=== PATIENT | female | born 1990 | race Caucasian/White ===

== ENCOUNTER 2017-11-18 16:58 | Emergency (ER) | payer OTHER ==
[2017-11-18 18:12] LABS: Urine Appearance Cloudy; Urine Blood Negative (Negative); Urine Color Straw; Urine Ketones Negative (Negative); Urine Protein Negative (Negative); Urine Specific Gravity 1.004 (1.010-1.030); Urine Urobilinogen Negative (Negative)
[2017-11-18 18:13] LABS: ABS Basophils 0.1 10^3/ul (0-0.2); ABS Eosinophils 0.1 10^3/ul (0-0.6); ABS Lymphocytes 2.2 10^3/ul (1.0-4.8); ABS Monocytes 0.8 10^3/ul (0-0.8); ABS Neutrophils 6.1 10^3/ul (1.5-7.7); ABS Nucleated RBC 0 10^3/ul; Eosinophil % 1.3 % (0-6); Hematocrit 42 % (35-47); Hemoglobin 14.3 g/dl (12.0-16.0); Lymphocyte % 23.6 % (25-47); Mean Corpuscular HGB Conc 34 g/dl (31-36); Mean Corpuscular Hemoglobin 31 pg (27-31); Mean Corpuscular Volume 91 fL (80-97); Mean Platelet Volume 8 um3 (7.4-10.4); Nucleated Red Blood Cells % 0; Platelet Count 239 10^3/ul (150-450); Red Blood Count 4.58 10^6/ul (4.0-5.4); Red Cell Distribution Width 13 % (10.5-15); White Blood Count 9.2 10^3/ul (3.5-10.8)
[2017-11-18 18:32] LABS: EGFR Non-African American 84.8 (>60)
--- NOTE | 2017-11-19 02:16 | ED ---
Jarad Ibarra Thomas, scribed for Shaniqua Apodaca MD on 11/19/17 at 0159 . Progress - Progress Note Progress Note: The patient is a sign out from Dr. Eden to follow up on the Ultrasound Pelvis. Ultrasound Pelvis. Interpreted by radiologist. Impression: Complex cystic structure in the right ovary likely reflects a hemorrhagic cyst. Correlation with history and pelvic exam is recommended. No torsion. The patient will be discharged home to follow up with primary care. Condition is stable. Course/Dx - Diagnoses Provider Diagnoses: Ovarian cyst, right The documentation as recorded by the Jarad sheth Thomas accurately reflects the service I personally performed and the decisions made by Constanza muir Abdul, MD.
[2017-11-19 02:39] VITALS: BP 112/70
--- NOTE | 2017-11-19 07:33 | RAD ---
INDICATION: Bilateral adnexal pain. COMPARISON: There are no prior studies available for comparison. TECHNIQUE: Multiple real-time transvaginal images of the pelvis were obtained. FINDINGS: The uterus is normal in size, shape and echogenicity. The uterus measured 7.2 x 3.3 x 4.3 cm. The endometrial echo measured 0.8 cm in thickness. The right ovary measured 4.2 x 4.0 x 2.6 cm. The left ovary measured 2.4 x 2.1 x 0.9 cm. There is vascular flow within both ovaries. There is a complex cyst present within the right ovary with internal septations and low-level echoes measuring 3.9 x 2.2 x 3.9 cm. There is a small amount of free intraperitoneal fluid seen. IMPRESSION: 1. 3.9 CM COMPLEX RIGHT OVARIAN CYST. RECOMMEND A FOLLOW-UP PELVIC ULTRASOUND IN 1-2 MONTHS TIME. 2. SMALL AMOUNT OF FREE INTRAPERITONEAL FLUID.
--- NOTE | 2017-11-20 10:52 | ED ---
Christiano Ibarra Jennifer, scribed for Jere Eden MD on 11/18/17 at 2031 . Abdominal Pain/Female - HPI Summary HPI Summary: The patient is a 27 year old female who presents to the ED with lower abdominal pain that began three days ago. She believed she pulled a muscle in her lower back from working out three days ago. Two days ago, her lower abdomen began to hurt causing her to hunch over, and the pain spread to her hips and lower back. The pain is described as tightness with sudden onset. She additionally complains of increased frequency of urination. The patient denies nausea and bowel movement issues. Sitting up straight aggravates the pain. Her LNMP was two weeks ago. - History of Current Complaint Chief Complaint: EDAbdPain Stated Complaint: ABD PAIN Time Seen by Provider: 11/18/17 20:15 Hx Obtained From: Patient Hx Last Menstrual Period: 2 weeks ago Onset/Duration: Sudden Onset, Lasting Days - three days, Still Present Timing: Constant Severity Initially: Moderate Severity Currently: Moderate Pain Intensity: 6 Pain Scale Used: 0-10 Numeric Radiates: Yes Radiates to: Back, Other - Hips Character: Other: - Tightness Aggravating Factor(s): Other: - Sitting up straight Alleviating Factor(s): Other: - Lying down Associated Signs and Symptoms: Positive: Other: - increased frequency of urination. NEGATIVE: nausea, problems with bowel movement Allergies/Adverse Reactions: Allergies Allergy/AdvReac Type Severity Reaction Status Date / Time No Known Allergies Allergy Verified 07/25/14 11:50 PMH/Surg Hx/FS Hx/Imm Hx Endocrine/Hematology History: Denies: Hx Diabetes Cardiovascular History: Denies: Hx Hypertension - Surgical History Surgery Procedure, Year, and Place: Knee 2010 Infectious Disease History: No Infectious Disease History: Denies: Traveled Outside the [place] in Last 30 Days - Family History Known Family History: Negative: Hypertension, Diabetes - Social History Alcohol Use: Occasionally Substance Use Type: Reports: None Smoking Status (MU): Never Smoked Tobacco Review of Systems Positive: Abdominal Pain - radiates to back and hips. Negative: Nausea Positive: other - increased frequency of urination All Other Systems Reviewed And Are Negative: Yes Physical Exam - Summary Physical Exam Summary: Appearance: The patient is well-nourished in no acute distress and in no acute pain. Skin: The skin is warm and dry and skin color reflects adequate perfusion. HEENT: ~The head is normocephalic and atraumatic. The pupils are equal and reactive. The conjunctivae are clear and without drainage. ~Nares are patent and without drainage. ~Mouth reveals moist mucous membranes and the throat is without erythema and exudate. ~The external ears are intact. The ear canals are patent and without drainage. The tympanic membranes are intact. Neck: the neck is supple with full range of motion and non-tender. There are no carotid bruits. ~There is no neck vein distension. Respiratory: Chest is non-tender. ~Lungs are clear to auscultation and breath sounds are symmetrical and equal. Cardiovascular: Heart is regular rate and rhythm. ~There is no murmur or rub auscultated. ~~There is no peripheral edema and pulses are symmetrical and equal. Abdomen: The abdomen is soft and non-tender. ~There are normal bowel sounds heard in all four quadrants and there is no organomegaly palpated. Musculoskeletal: There is no back tenderness noted. ~Extremities are non-tender with full range of motion. ~There is good capillary refill. ~There is no peripheral edema or calf tenderness elicited. Neurological: Patient is alert and oriented to person, place and time. ~The patient has symmetrical motor strength in all four extremities. ~Cranial nerves are grossly intact. Deep tendon reflexes are symmetrical and equal in all four extremities. Psychiatric: The patient has an appropriate affect and does not exhibit any anxiety or depression. Triage Information Reviewed: Yes Vital Signs On Initial Exam: Initial Vitals Temp Pulse Resp BP Pulse Ox 98.1 F 65 16 115/76 95 11/18/17 17:01 11/18/17 17:01 11/18/17 17:01 11/18/17 17:01 11/18/17 17:01 Vital Signs Reviewed: Yes Diagnostics - Vital Signs Vital Signs Temp Pulse Resp BP Pulse Ox 11/18/17 19:00 98.6 F 52 113/90 100 11/18/17 17:01 98.1 F 65 16 115/76 95 - Laboratory Lab Results: Lab Results 11/18/17 11/18/17 11/18/17 Range/Units 17:31 17:45 17:45 WBC 9.2 (3.5-10.8) 10^3/ul RBC 4.58 (4.0-5.4) 10^6/ul Hgb 14.3 (12.0-16.0) g/dl Hct 42 (35-47) % MCV 91 (80-97) fL MCH 31 (27-31) pg MCHC 34 (31-36) g/dl RDW 13 (10.5-15) % Plt Count 239 (150-450) 10^3/ul MPV 8 (7.4-10.4) um3 Neut % (Auto) 66.2 (38-83) % Lymph % (Auto) 23.6 L (25-47) % [place] % (Auto) 8.2 (1-9) % Eos % (Auto) 1.3 (0-6) % Baso % (Auto) 0.7 (0-2) % Absolute Neuts (auto) 6.1 (1.5-7.7) 10^3/ul Absolute Lymphs (auto) 2.2 (1.0-4.8) 10^3/ul Absolute Monos (auto) 0.8 (0-0.8) 10^3/ul Absolute Eos (auto) 0.1 (0-0.6) 10^3/ul Absolute Basos (auto) 0.1 (0-0.2) 10^3/ul Absolute Nucleated RBC 0 10^3/ul Nucleated RBC % 0 Sodium 136 (133-145) mmol/L Potassium 3.7 (3.5-5.0) mmol/L Chloride 104 (101-111) mmol/L Carbon Dioxide 26 (22-32) mmol/L Anion Gap 6 (2-11) mmol/L BUN 12 (6-24) mg/dL Creatinine 0.81 (0.51-0.95) mg/dL Est GFR ( Amer) 109.1 (>60) Est GFR (Non-Af Amer) 84.8 (>60) BUN/Creatinine Ratio 14.8 (8-20) Glucose 95 (70-100) mg/dL Lactic Acid (0.5-2.0) mmol/L Calcium 9.4 (8.6-10.3) mg/dL Total Bilirubin 0.30 (0.2-1.0) mg/dL AST 19 (13-39) U/L ALT 13 (7-52) U/L Alkaline Phosphatase 62 (34-104) U/L C-Reactive Protein 2.88 (< 5.00) mg/L Total Protein 7.4 (6.4-8.9) g/dL Albumin 4.1 (3.2-5.2) g/dL Globulin 3.3 (2-4) g/dL Albumin/Globulin Ratio 1.2 (1-3) Lipase 64 (11.0-82.0) U/L Beta HCG, Quant < 0.60 mIU/mL Urine Color Straw Urine Appearance Cloudy Urine pH 6.0 (5-9) Ur Specific [place] 1.004 L (1.010-1.030) Urine Protein Negative (Negative) Urine Ketones Negative (Negative) Urine Blood Negative (Negative) Urine Nitrate Negative (Negative) Urine Bilirubin Negative (Negative) Urine Urobilinogen Negative (Negative) Ur Leukocyte Esterase Trace H (Negative) Urine WBC (Auto) Trace(0-5/hpf) (Absent) Urine RBC (Auto) Trace(0-2/hpf) (Absent) Ur Squamous Epith Cells Present H (Absent) Urine Bacteria 1+ H (Absent) Urine Glucose Negative (Negative) 11/18/17 Range/Units 17:45 WBC (3.5-10.8) 10^3/ul RBC (4.0-5.4) 10^6/ul Hgb (12.0-16.0) g/dl Hct (35-47) % MCV (80-97) fL MCH (27-31) pg MCHC (31-36) g/dl RDW (10.5-15) % Plt Count (150-450) 10^3/ul MPV (7.4-10.4) um3 Neut % (Auto) (38-83) % Lymph % (Auto) (25-47) % Barton % (Auto) (1-9) % Eos % (Auto) (0-6) % Baso % (Auto) (0-2) % Absolute Neuts (auto) (1.5-7.7) 10^3/ul Absolute Lymphs (auto) (1.0-4.8) 10^3/ul Absolute Monos (auto) (0-0.8) 10^3/ul Absolute Eos (auto) (0-0.6) 10^3/ul Absolute Basos (auto) (0-0.2) 10^3/ul Absolute Nucleated RBC 10^3/ul Nucleated RBC % Sodium (133-145) mmol/L Potassium (3.5-5.0) mmol/L Chloride (101-111) mmol/L Carbon Dioxide (22-32) mmol/L Anion Gap (2-11) mmol/L BUN (6-24) mg/dL Creatinine (0.51-0.95) mg/dL Est GFR ( Amer) (>60) Est GFR (Non-Af Amer) (>60) BUN/Creatinine Ratio (8-20) Glucose (70-100) mg/dL Lactic Acid 0.8 (0.5-2.0) mmol/L Calcium (8.6-10.3) mg/dL Total Bilirubin (0.2-1.0) mg/dL AST (13-39) U/L ALT (7-52) U/L Alkaline Phosphatase (34-104) U/L C-Reactive Protein (< 5.00) mg/L Total Protein (6.4-8.9) g/dL Albumin (3.2-5.2) g/dL Globulin (2-4) g/dL Albumin/Globulin Ratio (1-3) Lipase (11.0-82.0) U/L Beta HCG, Quant mIU/mL Urine Color Urine Appearance Urine pH (5-9) Ur Specific [place] (1.010-1.030) Urine Protein (Negative) Urine Ketones (Negative) Urine Blood (Negative) Urine Nitrate (Negative) Urine Bilirubin (Negative) Urine Urobilinogen (Negative) Ur Leukocyte Esterase (Negative) Urine WBC (Auto) (Absent) Urine RBC (Auto) (Absent) Ur Squamous Epith Cells (Absent) Urine Bacteria (Absent) Urine Glucose (Negative) Result Diagrams: 11/18/17 17:45 11/18/17 17:45 Lab Statement: Any lab studies that have been ordered have been reviewed, and results considered in the medical decision making process. Abdominal Pain Fem Course/Dx - Course Course Of Treatment: Ms. Lockhart presented with a few days of low abdominal pain/ discomfort that goes into her back. She was only mildly tender in the low abdomen and her W/U is WNL. She is pending U/S and I suspect she will be D/C'd after that to F/U with her PMD. - Diagnoses Provider Diagnoses: Ovarian cyst, right Discharge - Discharge Plan Condition: Stable Disposition: HOME Prescriptions: Ibuprofen TAB* [Motrin TAB* 800 MG] 800 mg PO Q6H PRN #30 tab PRN Reason: Pain Patient Education Materials: Ovarian Cyst (ED), Abdominal Pain (ED) Referrals: Jeremiah MAJOR,Miguel Weeks [Primary Care Provider] - 3 Days Additional Instructions: Follow up with your primary care physician in three days. Return to the emergency department for any new or worsening symptoms. The documentation as recorded by the Christiano sheth Jennifer accurately reflects the service I personally performed and the decisions made by me, Jere Eden MD.
== END 2017-11-19 01:57 | disposition home or self-care (01) ==
LOC: ED 16:58
DX: N83.201 Unspecified ovarian cyst, right side (principal); R10.30 Lower abdominal pain, unspecified
CPT/HCPCS: 36415; 76830; 80053; 81003; 81015; 83605; 83690; 84702; 85025; 86140; 87086; 99283

== ENCOUNTER 2020-01-28 14:22 | Inpatient (IN) | payer BC ==
--- NOTE | 2020-01-28 16:00 | HP ---
General Information - Reason for Visit IUP at 40-12/11 here for evaluation of membrane status HPI At 0600 after voiding was going back to bed when she experienced "a large gush of clear fluid". Since that time continues to report consistent leaking with position changes, movement. Enough to make a wash cloth wet. Denies VB. No regular, painful UCs but does note some mild, cramping type tightening as frequent as q 10 minutes but still irregular. Describes active FM - General Information Maternal Age: 29 Grav: 1 Para: 0 SAB: 0 IEA: 0 Estimated Due Date: 01/25/20 Determined By: LMP Gestational Age in Weeks/Days: 40-12/11 Maternal Blood Type and Rh: O Positive - Results this Serology/RPR Result: Non-Reactive Rubella Result: Immune HBsAg Result: Negative HIV Result: Negative GBS Culture Result: Negative Past Medical History Delivery History: See Records Delivery History Comment: Primip Pertinent Past Medical History: See Records Past Medical History Comment: H/O Migraine with aura Back pain s/p horse riding accident age 16 PCOS Childhood asthma Pertinent Past Surgical History: See Records Past Surgical History Comment: 2009 Right meniscus repair - Antepartal Records Antepartal Records: Reviewed, Uncomplicated Review of Systems Constitutional: Comfortable CV Complaint: No Respiratory: Shortness of Breath: No Gastrointestinal: No Nausea/Vomiting, Normal Bowel Movement Genitourinary: Leaking Fluid, No Dysuria, No Bleeding Musculoskeletal: No Epigastric Pain, Contractions - mild, irregular Neurological: No Headache, No Visual Changes Movement: Normal Exam Allergies/Adverse Reactions: Allergies No Known Allergies Allergy (Verified 01/28/20 14:53) BP 112/71 HR 70 RR 20 T 97.6 SpO2 100% on RA Lab Values - Entire Visit: Laboratory Tests 01/28/20 14:40 Vag Amniotic Fld Detect Negative - Measurements Height: 5 ft 4 in Weight: 216 lb Weight in lbs: [phone] Body Mass Index (BMI): 37.0 Pre- Weight: 196 lb Weight Gained This : 20 lbs and 0 ozs - Exam Breast: Breast Exam Deferred CVA: No CVA Tenderness Extremities: No Edema Heart: Normal Rhythm/Heart Sounds HEENT: No Significant Findings Lungs: Clear Bilaterally Rectal: Rectal Exam Deferred Reflexes: DTR 2+ Thyroid: No Thyromegaly Other Exam Findings: : +Valsalva +Nitrazine - Abdominal Exam Abdomen Exam: Non-Tender, Fundal Height Consistent with Dates - Ultrasound/Biophysical Profile Ultrasound Status: Not Done Targeted Exam Findings See L&D Outpatient Visit Provider Note for Findings: N/A Estimated Weight: 8lbs by Alfred Presenting Part: Vertex - SVE deferred in presence of ruptured membranes Membrane Status: SROM Amniotic Fluid Evaluation: Negative ROM Plus - suspect false negative in light of physical exam findings Sterile Speculum Exam: +Pooling +Valsalva +Nitrazine Bleeding/Discharge: None EFM Findings - External Monitor Findings Baseline Heart Rate: 125 External Monitor Findings: Accelerations Present, No Pattern of Variable or Late Decelerations, Variability Moderate, Baseline Stable External Monitor Findings Comment: No evidence of metabolic acidemia Contractions: Irregular, Mild Assessment/Plan - Assessment IUP at 40-3/7 with suspected rupture of membranes since 0600 Not in active labor No evidence of metabolic acidemia GBS negative - Plan Plan: Admit - Anticipate Vaginal Delivery Plan Comment: Lengthy review of recommendations in presence of pre-labor rupture of membranes including strong recommendation to initiate induction/augmentation now to decrease the risk of infection to mother and fetus vs. ongoing expectant management with no SVE until onset of labor to minimize risk of infection. Discussed pros/cons, risks/benefits and all questions answered. Pt and FOB with strong preference to avoid induction if possible. They are really hoping for an unmedicated, natural delivery. They do verbalize awareness of risk of infection and agree to re-visit induction/augmentation if no active labor pattern by 2200 this evening. - Date/Time of Admission Date of Admission: 01/28/20 Time of Admission: 15:45
[2020-01-28 17:39] LABS: Urine Benzodiazepine Screen None Detected (None Detect); Urine Opiates Screen None Detected (None Detect)
--- NOTE | 2020-01-28 20:46 | PN ---
Progress Note - Progress Note Date of Service: 01/28/20 Note: S: Pt reports increasing intensity and regularity of contractions. Has been standing at the bedside, tried the tub and is now in a left lateral position. Breathing through UCs. Reports UCs q 2-5 min. Reports continued leaking of clear fluid with some pink tinge on pad. Denies VB. Describes active FM. FOB at bedside and attentive coaching her through UCs O: BP 109/69 HR 65 T 98.7 RR 18 FHT 125bpm. Moderate variability. +Accels. No decels UCs q 2-5 min, moderate to firm VE deferred in presence of rupture A: IUP at 40-3/7 in early active labor No evidence of metabolic acidemia P: Given their strong preference for a natural labor reviewed frequent position changes and support provided for ongoing psychoprophylaxis. Continue to monitor labor pattern and FHT. Consider SVE once UC pattern well established or pt reports increased pressure.
--- NOTE | 2020-01-28 23:47 | PN ---
Progress Note - Progress Note Date of Service: 01/28/20 Note: Late entry: Evaluation at bedside at 2310 S: Pt breathing through UCs. Reports contraction pain all down low in pelvis. Consents to VE O: VSS, afebrile FHT 135bpm. Moderate variability. +Accels. No decels UCs q 1.5-4.5 min VE 3cm/100%/vtx -1, clear fluid A: IUP at 40-3/7 in early active labor No evidence of metabolic acidemia P: Support given. Continue expectant management for now
[2020-01-29] MEDS ORDERED: Lactated Ringers 1000 ML Bag* 1,000 ML IV SCH ×4 (01:00→14:00)
--- NOTE | 2020-01-29 01:01 | PN ---
Progress Note - Progress Note Date of Service: 01/29/20 Note: Quick note: Pt requesting epidural. Plan IV, labs, fluid bolus. Anesthesia on unit for another pt. Aware.
[2020-01-29] MEDS ORDERED: OBEPIDURAL* 250 ML EPIDURAL ONE (01:17)
[2020-01-29 01:24] LABS: ABS Basophils 0.1 10^3/ul (0-0.2); ABS Monocytes 0.8 10^3/ul (0-0.8); Eosinophil % 0.1 %; Hematocrit 38 % (35-47); Hemoglobin 12.9 g/dL (12.0-16.0); Lymphocyte % 5.2 %; Mean Corpuscular HGB Conc 34 g/dL (31-36); Mean Corpuscular Hemoglobin 30 pg (27-31); Mean Corpuscular Volume 88 fL (80-97); Mean Platelet Volume 8.6 fL (7.4-10.4); Platelet Count 244 10^3/uL (150-450); Red Blood Count 4.29 10^6 /uL (3.70-4.87); Red Cell Distribution Width 13 % (10-15); White Blood Count 19.9 10^3/uL (3.5-10.8)
[2020-01-29] MEDS ORDERED: Phenylephrine 40 MCG/ML SYRINGE IV PUSH PRN ×2 (02:09)
[2020-01-29] MEDS ORDERED: Famotidine TAB* 20 MG PO PRN (02:09)
[2020-01-29] MEDS ORDERED: Lactated Ringers 1000 ML Bag* 500 ML IV PRN ×2 (02:09)
[2020-01-29] MEDS ORDERED: Sodium Citrate/Citric Acid* 15 ML UDC PO PRN (02:09)
[2020-01-29] MEDS ORDERED: Lactated Ringers 1000 ML Bag* 1,000 ML IV ONE (02:09)
[2020-01-29] MEDS ORDERED: OBEPIDURAL* 250 ML EPIDURAL SCH (03:00)
--- NOTE | 2020-01-29 04:31 | PN ---
Progress Note - Progress Note Date of Service: 01/29/20 Note: S: Pt resting comfortably s/p CEI placement. O: BP 106/72 HR 87 T 99.6 RR 18 FHT 135bpm. Moderate variability. +Accels. No decels UCsq 2-4 VE 7cm/100%/vtx -1 A: IUP at 40-4/7 in active labor No evidence of metabolic acidemia P: Enc rest. Close monitoring of maternal/ status
--- NOTE | 2020-01-29 07:44 | PN ---
Progress Note - Progress Note Date of Service: 01/29/20 Note: S: Pt resting comfortably in bed. Describes mild, intermittent pressure O: BP 104/74 HR 90 T 99.4 FHT 145bpm. Moderate variability. +Accels. NO decels UCs q 2-4 VE complete/100%/vtx +1/+2 A: IUP at 40-4/7 in active labor No evidence of metabolic acidemia P: Re-positioned pt into an upright seated position. Anticipate trial of pushing soon. Report to Helen Beasley CNM
[2020-01-29] MEDS ORDERED: Oxytocin in LR* 20 UNITS/1,000 ML BAG IVPB ONE (09:28)
[2020-01-29] MEDS ORDERED: Glycerin ADULT SUPP PR PRN (13:57)
[2020-01-29] MEDS ORDERED: Witch Hazel PAD* JAR TOPICAL PRN (13:57)
[2020-01-29] MEDS ORDERED: Oxytocin in LR* 20 UNITS/1,000 ML BAG IVPB SCH (14:00)
[2020-01-29] MEDS: Ibuprofen TAB* 600 MG PO SCH ×2 (14:49→21:05)
[2020-01-29] MEDS: Docusate CAP* 100 MG PO SCH ×2 (14:50→21:05)
[2020-01-29] MEDS: Dibucaine 1% 28.35 GM TUBE PR PRN (14:50)
[2020-01-29] MEDS ORDERED: Lidocaine 1% INJ* 10 MG/ML 30 ML SDV ONE (16:35)
--- NOTE | 2020-01-29 16:51 | PROCNOTE ---
[facility] OB: Delivery Note - Delivery A Date of : 01/29/20 Time of : 13:22 [place] Sex: Male Weight at : 7 lb 12 oz Score 1 Minute: 9 Score 5 Minutes: 10 Gestational Age in Weeks and Days at Delivery: 40 Weeks and 4 Days Delivery Method: Spontaneous Vaginal Labor: Spontaneous Did Patient attempt ?: N/A, No Previous Amniotic Fluid: Clear Estimated Blood Loss: 500 Anesthesia/Analgesia: CEI for Labor - Nursery Level of Nursery: Regular/Bedside - Perineum Perineal Injury: Vaginal Laceration, 1st Degree Perineal Repair: By Delivering Practioner - Events Delivery Events of Note: Pitocin During Labor, Pushed > 3 Hours - Additional Delivery Notes Additional Delivery Notes: G1 admitted to L&D for following PROM (clear fluid) at 0600 on 01/28/20. She progressed to complete and complete with good relief from CEI. Category II tracing during second stage of labor. Four hours of strong maternal pushing efforts led to spontaneous vaginal delivery of head OA to MARKO; shoulders followed easily. Male infant placed on maternal abdomen. HR>110, Apgars 9 and 10. Cord doubly clamped and cut by LM once pulsations ceased. Pitocin given via IVPB for active management of 3rd stage. Placenta delivered spontaneously via caballero, appears intact, 3vc. Perineum and vagina inspected - vaginal laceration noted. Repaired in the usual fashion under 1% lidocaine with CEI infusing. Normal anatomy restored. EBL 500mL. Mom and baby stable at time of note. Baby attempting to breastfeed.
[2020-01-29] MEDS ORDERED: Simethicone TAB* 80 MG TAB.CHEW PO SCH (17:30)
[2020-01-29] MEDS: Acetaminophen TAB* 325 MG PO PRN (17:45)
[2020-01-30] MEDS: Ibuprofen TAB* 600 MG PO SCH ×4 (04:24→21:45)
[2020-01-30 07:13] LABS: ABS Basophils 0.1 10^3/ul (0-0.2); ABS Eosinophils 0.2 10^3/ul (0-0.6); ABS Lymphocytes 2.3 10^3/ul (1.0-4.8); ABS Monocytes 1.1 10^3/ul (0-0.8); ABS Neutrophils 14.6 10^3/ul (1.5-7.7); Hematocrit 31 % (35-47); Hemoglobin 10.3 g/dL (12.0-16.0); Lymphocyte % 12.8 %; Mean Corpuscular HGB Conc 34 g/dL (31-36); Mean Corpuscular Hemoglobin 30 pg (27-31); Mean Corpuscular Volume 89 fL (80-97); Platelet Count 203 10^3/uL (150-450); Red Blood Count 3.47 10^6 /uL (3.70-4.87); Red Cell Distribution Width 14 % (10-15); White Blood Count 18.2 10^3/uL (3.5-10.8)
[2020-01-30] MEDS: Acetaminophen TAB* 325 MG PO PRN ×3 (08:52→20:29)
[2020-01-30] MEDS: Docusate CAP* 100 MG PO SCH ×3 (08:52→20:29)
[2020-01-30] MEDS: Dibucaine 1% 28.35 GM TUBE PR PRN (08:57)
[2020-01-30] MEDS ORDERED: Ferrous Gluconate TAB* 324 MG TAB PO SCH (09:00)
[2020-01-31] MEDS: Ibuprofen TAB* 600 MG PO SCH ×2 (00:52→06:52)
[2020-01-31] MEDS: Dibucaine 1% 28.35 GM TUBE PR PRN (00:53)
[2020-01-31] MEDS: Acetaminophen TAB* 325 MG PO PRN (06:52)
[2020-01-31 07:59] VITALS: BP 108/64
[2020-01-31] MEDS: Docusate CAP* 100 MG PO SCH (08:27)
== END 2020-01-31 10:36 | disposition home or self-care (01) | DRG 560 ==
LOC: MCHOBOUT 14:22 → MCHOB 15:53
PROVIDERS: ADMIT Midwife; ATTEND Advanced Practice Midwife
PROC: 10E0XZZ Delivery of Products of Conception, External Approach (ICD-10-PCS; principal; 2020-01-29)
PROC: 0HQ9XZZ Repair Perineum Skin, External Approach (ICD-10-PCS; 2020-01-29)
DX: O48.0 Post-term pregnancy (principal); O71.4 Obstetric high vaginal laceration alone; Z37.0 Single live birth; Z3A.40 40 weeks gestation of pregnancy; O99.284 Endocrine, nutritional and metabolic diseases complicating childbirth; E28.2 Polycystic ovarian syndrome; O99.52 Diseases of the respiratory system complicating childbirth; J45.909 Unspecified asthma, uncomplicated; O77.0 Labor and delivery complicated by meconium in amniotic fluid
CPT/HCPCS: 36415; 80307; 84112; 85025; 86850; 86900; 86901; A9270-GY; G0480